=== PATIENT | male | born 1950 | race Caucasian/White ===

== ENCOUNTER 2025-07-09 08:54 | Outpatient (CLI) | payer MEDICARE, SELFPAY ==
--- OUTSIDE RECORDS SUMMARY | 2025-07-09 08:56 | XMS_ITS | Patient Health Record ---
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 Name Role Phone NATHAN MONTES Primary Care Provider [phone] Reason For Referral No Information Medications Medication SIG (Take, Route, Fr equency, Duration) Notes Start Date End Date Status glipiZIDE 10 mg 2 (two) tablet, exte oral once a day; Duration: one 04/29/2016 Active Actos 30 mg tablet(s) oral oral; Duration: thirty 04/29/2016 Active Flomax 0.4 mg 1 (one) once a day o nce a day; Duration: thirty 12/25/2015 Active Mobic 7.5 mg ; Duration: one 12/25/2015 Active Paxil 40 mg 1 tablet(s) oral onc oral once a day; Duration: one 12/25/2015 Active Problems Problem Type SNOMED Code ICD Code Onset Dates Problem Status W/U Status Risk Notes Problem Memory loss (57477581) Memory loss (780.93) 07/07/20 14 Active confirmed Justin-Bin Problem Diabetic peripheral neuropathy associated with type 2 diabetes mellitus (7099354583833) Type 2 diabetes mellitus with diabetic neuropathy, unspecified (E11.40) 02/07/20 14 Active confirmed Justin-Bin Problem Hyperglycemia due to type 2 diabetes mellitus (726130687790267 ) Type 2 diabetes mellitus with hyperglycemia (E11.65) 02/07/20 14 Active confirmed Justin-Bin Problem Dysthymia (20269740) Dysthymic disorder (F34.1) 02/07/20 14 Active confirmed Justin-Bin Plan Of Treatment No Information Insurance Providers Payer Name Payer Address Payer Phone Subscriber Number Group Number Insured Name Patient Relationship to Insured Coverage Start Date Coverage End Date [employer] [place] [address] [place] [address] [id number] Homar Hansen Self - patient is the insured Medical (General) History Surgical History Surgery Date(Month/Year) Brain shunt x 2 Gallbladder
[2025-07-09 09:02] LABS: Hematocrit 46.5 % (42.0-52.0); Hemoglobin 15.2 g/dL (14.1-18.0); Immature Granulocytes % 0.3 %; Mean Corpuscular HGB Conc 32.7 g/dL (31.8-35.4); Mean Corpuscular Hemoglobin 31.9 pg (27.0-31.2); Mean Corpuscular Volume 97.7 fl (80-94); Nucleated Red Blood Cells % 0 %; Platelet Count 166 K/mm3 (142-424); Red Blood Count 4.76 M/mm3 (4.60-6.20); Red Cell Distribution Width-SD 45.9 fL; White Blood Count 7.5 K/mm3 (4.8-10.8)
[2025-07-09 09:41] LABS: Alanine Aminotransferase 10 U/L (12-78); Albumin Level 4.3 g/dl (3.5-5.0); Albumin/Globulin Ratio 1.3 (1.1-1.8); Alkaline Phosphatase 87 U/L (38-126); Anion Gap 12.6 mEq/L (5-15); Aspartate Amino Transferase 25 U/L (17-59); Bilirubin,Total 0.5 mg/dl (0.2-1.3); Blood Urea Nitrogen 35 mg/dl (9-20); Calcium 9.2 mg/dl (8.4-10.2); Carbon Dioxide 26 mmol/L (22.0-30.0); Chloride 107 mmol/L (98-107); Cholesterol 141 mg/dl (140-200); Creatinine,Serum 1.20 mg/dl (0.66-1.25); Estimated Glomerular Filt Rate 59 ml/min (>60); GFR (African American) 72 ML/MIN (>60); Globulin 3.2 g/dL (1.3-3.2); Glucose 82 mg/dl (74-100); HDL Cholesterol 53 mg/dl (40-60); Potassium 4.6 mmoL/L (3.5-5.1); Sodium 141 mmol/L (136-145); Total Protein,Serum 7.5 g/dl (6.3-8.2); Triglycerides 89 mg/dl (30-150)
[2025-07-09 10:00] LABS: Free T4 (Free Thyroxine) 0.86 ng/dl (0.78-2.19)
[2025-07-09 10:12] LABS: Thyroid Stimulating Hormone 2.37 uIU/mL (0.465-4.68)
[2025-07-09 10:45] LABS: Hemoglobin A1C 6.9 % (4.0-6.0)
== END 2025-07-09 23:59 | disposition home or self-care (01) ==
LOC: LAB.DROPOF 08:54
PROVIDERS: PCP Family Medicine; Visit Provider Family Medicine
DX: E11.9 Type 2 diabetes mellitus without complications (principal)
CPT/HCPCS: 36415; 80053; 80061; 83036; 84439; 84443; 85025

== ENCOUNTER 2025-07-10 14:45 | Outpatient (CLI) | payer MEDICARE, SELFPAY ==
--- OUTSIDE RECORDS SUMMARY | 2025-07-10 14:49 | XMS_ITS | Patient Health Record ---
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 Name Role Phone NATHAN MONTES Primary Care Provider [phone] Reason For Referral No Information Medications Medication [...] W/U Status Risk Notes Problem Memory loss (63360608) Memory loss (780.93) 07/07/20 14 Active confirmed Justin-Bin Problem Diabetic peripheral neuropathy associated with type 2 diabetes mellitus (4135804503886) Type 2 diabetes mellitus with diabetic neuropathy, unspecified (E11.40) 02/07/20 14 Active confirmed Justin-Bin Problem Hyperglycemia due to type 2 diabetes mellitus (610952816855224 ) Type 2 diabetes mellitus with hyperglycemia (E11.65) 02/07/20 14 Active confirmed Justin-Bin Problem Dysthymia (25272150) Dysthymic disorder (F34.1) 02/07/20 14 Active confirmed Justin-Bin Plan Of Treatment No Information Insurance Providers Payer Name Payer Address Payer Phone Subscriber Number Group Number Insured Name Patient Relationship to Insured Coverage Start Date Coverage End Date [employer] [place] ([place] [address] [place] [phone] [id number] Homar Hansen Self - patient is the insured Medical (General) History Surgical History Surgery Date(Month/Year) Brain shunt x 2 Gallbladder
[2025-07-10 14:52] LABS: Microscopic, Urine URINE MICROSCOPIC (MICROSCOPIC)
[2025-07-10 15:01] LABS: Bilirubin,Urine Negative (Negative); Color,Urine YELLOW (Yellow); Glucose,Urine (UA) 3+ (Negative); Ketones,Urine Negative (Negative); Leukocyte Esterase,Urine Negative (Negative); PH,Urine 5.5 (5.0-8.5); Protein,Urine Negative (Negative); Specific Gravity, Urine 1.025 (1.005-1.030); Urobilinogen,Urine 0.2 EU/dl (0.2)
[2025-07-10 15:13] LABS: Bacteria,Urine Trace /lpf; WBC,Urine Occasional #/hpf (0-3)
== END 2025-07-10 23:59 | disposition home or self-care (01) ==
LOC: LAB.DROPOF 14:46
PROVIDERS: PCP Family Medicine; Visit Provider Family Medicine
DX: R30.0 Dysuria (principal)
CPT/HCPCS: 81001; 87086